=== PATIENT | female | born 1950 | race Caucasian/White ===

== ENCOUNTER 2021-10-02 08:54 | Outpatient (CLI) | payer MEDICARE, BC | END 2021-10-02 08:55 | disposition home or self-care (01) | LOC: CSHMAMMO 08:54 | PROVIDERS: ATTEND Internal Medicine | DX: Z12.31 Encounter for screening mammogram for malignant neoplasm of breast (principal) | CPT/HCPCS: 77063; 77067 ==

== ENCOUNTER 2021-11-18 12:17 | Outpatient (CLI) | payer MEDICARE | END 2021-11-18 12:18 | disposition home or self-care (01) | LOC: CSHRAD 12:17 | PROVIDERS: ATTEND Internal Medicine | DX: R04.2 Hemoptysis (principal) | CPT/HCPCS: 71046 ==

== ENCOUNTER 2022-03-19 11:59 | Inpatient (IN) | payer BC, MEDICARE, OTHER ==
[2022-03-19 12:29] LABS: #Basophils 0.1 10x3/uL (0.0-0.2); #Eosinphils 0.3 10x3/uL (0.0-0.5); #Monocytes 0.8 10x3/uL (0.0-1.1); #Neutrophils 4.1 10x3/uL (1.5-8.4); %Basophils 0.9 % (0.0-2.0); %Eosinophils 3.8 % (0.0-6.0); %Lymphocytes 25.4 % (18.0-47.0); %Monocytes 10.8 % (0.0-10.0); %Neutrophils 58.8 % (40.0-75.0); Hemoglobin 13.3 g/dL (12.0-15.5); Mean Corpuscular HGB CONC 34.8 g/dL (32.0-36.0); Mean Corpuscular Hemoglobin 32.5 pg (27.0-33.0); Mean Corpuscular Volume 93.4 fl (81.6-98.3); Mean Platelet Volume 8.2 fl (7.4-10.4); Platelet Count 165 10x3/uL (150-450); RBC Distribution Width 12.5 % (11.5-14.5); Red Blood Cell (RBC) Count 4.09 10x6/uL (3.90-5.03); White Blood Cell (WBC) Count 6.9 10x3/uL (3.5-10.5)
[2022-03-19 12:49] LABS: ALT (SGPT) 17 U/L (8-55); AST (SGOT) 20 U/L (5-34); Albumin 3.9 g/dL (3.4-4.8); Alkaline Phosphatase 68 U/L (40-110); Anion Gap 12 mmol/L (10-20); BUN (Urea Nitrogen) 21 mg/dL (9.8-20.1); Bilirubin, Total 0.3 mg/dL (0.2-1.2); Calc. Creatinine Clearance 0 mL/min (70-130); Calcium 9.4 mg/dL (7.8-10.44); Carbon Dioxide 24 mmol/L (23-31); Chloride 107 mmol/L (98-107); Globulin 2.3 g/dL (2.4-3.5); Glucose 85 mg/dL (83-110); Lipase 73 U/L (8-78); Potassium 4.8 mmol/L (3.5-5.1); Protein, Total 6.2 g/dL (5.8-8.1); Sodium 138 mmol/L (136-145)
[2022-03-19] MEDS ORDERED: Aspirin Chewable 81 MG TAB ONE (14:01)
[2022-03-19] MEDS ORDERED: Furosemide 20 MG/2 ML VIAL SLOW IVP SCH (16:00)
[2022-03-19 17:14] VITALS: BMI 71.2
[2022-03-19] MEDS ORDERED: traMADol HCl 50 MG TAB PO PRN (18:16)
[2022-03-19 19:25] LABS: Free T4 (Free Thyroxine) 1.02 ng/dL (0.70-1.48); Thyroid Stimulating Hormone 0.264 uIU/mL (0.35-4.94)
[2022-03-19] MEDS: Donepezil HCl 5 MG TAB PO SCH (20:51)
[2022-03-19] MEDS: Metoprolol Tartrate 25 MG TAB PO SCH (20:52)
[2022-03-19] MEDS: Nitroglycerin 2% Ointment 1 INCH/1 GM Packet TOP SCH (20:58)
[2022-03-20 04:59] LABS: #Eosinphils 0.3 10x3/uL (0.0-0.5); #Monocytes 0.7 10x3/uL (0.0-1.1); #Neutrophils 3.3 10x3/uL (1.5-8.4); %Basophils 0.6 % (0.0-2.0); %Eosinophils 4.2 % (0.0-6.0); %Lymphocytes 34.1 % (18.0-47.0); %Monocytes 10.7 % (0.0-10.0); %Neutrophils 50.1 % (40.0-75.0); Hemoglobin 13.4 g/dL (12.0-15.5); Mean Corpuscular HGB CONC 34.8 g/dL (32.0-36.0); Mean Corpuscular Volume 91.9 fl (81.6-98.3); Mean Platelet Volume 8.3 fl (7.4-10.4); Platelet Count 158 10x3/uL (150-450); RBC Distribution Width 12.4 % (11.5-14.5); Red Blood Cell (RBC) Count 4.19 10x6/uL (3.90-5.03); White Blood Cell (WBC) Count 6.6 10x3/uL (3.5-10.5)
[2022-03-20 05:04] LABS: ALT (SGPT) 14 U/L (8-55); AST (SGOT) 17 U/L (5-34); Albumin 3.6 g/dL (3.4-4.8); Alkaline Phosphatase 70 U/L (40-110); Anion Gap 14 mmol/L (10-20); BUN (Urea Nitrogen) 25 mg/dL (9.8-20.1); Bilirubin, Total 0.3 mg/dL (0.2-1.2); Calc. Creatinine Clearance 50 mL/min (70-130); Calcium 9.5 mg/dL (7.8-10.44); Carbon Dioxide 26 mmol/L (23-31); Cardiac Risk 3.2 (Less than 4.5); Chloride 106 mmol/L (98-107); Cholesterol 168 mg/dl (< 200 Desired); Globulin 2.6 g/dL (2.4-3.5); Glucose 86 mg/dL (83-110); HDL Cholesterol 52 mg/dL (>60 Neg Risk); LDL Cholesterol, Calculated 77 mg/dL; Potassium 4.1 mmol/L (3.5-5.1); Protein, Total 6.2 g/dL (5.8-8.1); Sodium 142 mmol/L (136-145); Triglycerides 195 mg/dL (Less than 150)
[2022-03-20] MEDS: Nitroglycerin 2% Ointment 1 INCH/1 GM Packet TOP SCH ×3 (05:05→21:45)
[2022-03-20] MEDS: Levothyroxine Sodium 75 MCG TAB PO SCH (05:05)
[2022-03-20] MEDS: Metoprolol Tartrate 25 MG TAB PO SCH ×2 (08:19→21:22)
[2022-03-20] MEDS: Escitalopram Oxalate 10 mg Tablet PO SCH (08:20)
[2022-03-20] MEDS: Amitriptyline HCl 25 MG TAB PO SCH (08:20)
[2022-03-20] MEDS: Ezetimibe 10 MG TAB PO SCH (08:20)
[2022-03-20] MEDS: Bupropion 150 MG SR TAB PO SCH (08:20)
[2022-03-20] MEDS: Aspirin 81 mg Enteric Coated Tablet PO SCH (08:22)
[2022-03-20] MEDS ORDERED: Aspirin Chewable 81 MG TAB PO SCH (09:00)
[2022-03-20] MEDS ORDERED: Enoxaparin Sodium 30 MG/0.3 ML SYRINGE SC SCH (09:00)
[2022-03-20] MEDS ORDERED: Communication Order-Pharmacy FS SCH (18:00)
[2022-03-20] MEDS: Donepezil HCl 5 MG TAB PO SCH (21:20)
[2022-03-21] MEDS: Levothyroxine Sodium 75 MCG TAB PO SCH (07:13)
[2022-03-21] MEDS: Nitroglycerin 2% Ointment 1 INCH/1 GM Packet TOP SCH ×3 (07:30→22:30)
[2022-03-21] MEDS: Aspirin 81 mg Enteric Coated Tablet PO SCH (07:55)
[2022-03-21] MEDS: Amitriptyline HCl 25 MG TAB PO SCH (07:55)
[2022-03-21] MEDS: Ezetimibe 10 MG TAB PO SCH (07:55)
[2022-03-21] MEDS: Escitalopram Oxalate 10 mg Tablet PO SCH (07:55)
[2022-03-21] MEDS: Metoprolol Tartrate 25 MG TAB PO SCH ×2 (07:55→20:17)
[2022-03-21] MEDS: Bupropion 150 MG SR TAB PO SCH (07:55)
[2022-03-21] MEDS ORDERED: Sodium Chloride 0.9% 1,000 ML IV SCH (08:00)
[2022-03-21] MEDS ORDERED: Iopamidol 300 61% 100 ML VIAL FS ONE (10:58)
[2022-03-21] MEDS: Acetaminophen 325 MG TAB PO PRN (12:15)
[2022-03-21] MEDS ORDERED: Lidocaine 1% 20 ML MDV ONE (14:18)
[2022-03-21] MEDS ORDERED: Heparin 10,000 UNITS/ 10 ML VIAL ONE (14:19)
[2022-03-21] MEDS ORDERED: Adenosine 6 MG/2 ML VIAL ONE (14:19)
[2022-03-21] MEDS ORDERED: Nitroglycerin 50 MG/250 ML BOT 0 ML ONE (14:19)
[2022-03-21] MEDS ORDERED: Sodium Chloride 0.9% 1,000 ML ONE (14:20)
[2022-03-21] MEDS ORDERED: Fentanyl 100 MCG/2 ML VIAL ONE (15:02)
[2022-03-21] MEDS ORDERED: Midazolam HCl 2 mg/2 ml Vial ONE (15:02)
[2022-03-21] MEDS ORDERED: Sodium Chloride 0.9% 200 ML IV PRN (15:41)
[2022-03-21] MEDS: Donepezil HCl 5 MG TAB PO SCH (20:17)
[2022-03-22] MEDS: Nitroglycerin 2% Ointment 1 INCH/1 GM Packet TOP SCH ×2 (06:10→06:51)
[2022-03-22] MEDS: Levothyroxine Sodium 75 MCG TAB PO SCH (06:20)
[2022-03-22] MEDS: Bupropion 150 MG SR TAB PO SCH (08:07)
[2022-03-22] MEDS: Aspirin 81 mg Enteric Coated Tablet PO SCH (08:07)
[2022-03-22] MEDS: Ezetimibe 10 MG TAB PO SCH (08:07)
[2022-03-22] MEDS: Amitriptyline HCl 25 MG TAB PO SCH ×2 (08:07→13:27)
[2022-03-22] MEDS: Metoprolol Tartrate 25 MG TAB PO SCH (08:07)
[2022-03-22] MEDS: Acetaminophen 325 MG TAB PO PRN (08:07)
[2022-03-22] MEDS: Escitalopram Oxalate 10 mg Tablet PO SCH (08:09)
[2022-03-22 16:22] VITALS: BP 126/58; TEMP 97.1
[2022-03-22] MEDS ORDERED: Amitriptyline HCl 25 MG TAB PO SCH (21:00)
== END 2022-03-22 16:30 | disposition home or self-care (01) | DRG 287 ==
LOC: CSHERS 11:59 → CSHTELE 14:58 → OBSVTOIN 03-22 11:31
PROVIDERS: ADMIT Hospitalist; ATTEND Family Medicine
PROC: 4A023N7 Measurement of Cardiac Sampling and Pressure, Left Heart, Percutaneous Approach (ICD-10-PCS; principal; 2022-03-22)
PROC: B215YZZ Fluoroscopy of Left Heart using Other Contrast (ICD-10-PCS; 2022-03-22)
DX: I25.110 Atherosclerotic heart disease of native coronary artery with unstable angina pectoris (principal); R07.89 Other chest pain; I10 Essential (primary) hypertension; E03.9 Hypothyroidism, unspecified; F32.A Depression, unspecified; K21.9 Gastro-esophageal reflux disease without esophagitis; F41.9 Anxiety disorder, unspecified; G47.00 Insomnia, unspecified; I73.9 Peripheral vascular disease, unspecified; I34.0 Nonrheumatic mitral (valve) insufficiency; M71.9 Bursopathy, unspecified; I49.5 Sick sinus syndrome; E78.2 Mixed hyperlipidemia; E78.00 Pure hypercholesterolemia, unspecified; Z20.822 Contact with and (suspected) exposure to COVID-19; Z96.653 Presence of artificial knee joint, bilateral; Z95.0 Presence of cardiac pacemaker; Z88.1 Allergy status to other antibiotic agents; Z95.1 Presence of aortocoronary bypass graft; Z88.5 Allergy status to narcotic agent; Z88.0 Allergy status to penicillin; Z88.2 Allergy status to sulfonamides; Z88.7 Allergy status to serum and vaccine; Z88.8 Allergy status to other drugs, medicaments and biological substances; Z91.09 Other allergy status, other than to drugs and biological substances; Z79.82 Long term (current) use of aspirin; Z79.899 Other long term (current) drug therapy; Z79.890 Hormone replacement therapy; Z79.01 Long term (current) use of anticoagulants; Z95.5 Presence of coronary angioplasty implant and graft; Z90.49 Acquired absence of other specified parts of digestive tract; I25.2 Old myocardial infarction; Z90.710 Acquired absence of both cervix and uterus; Z83.3 Family history of diabetes mellitus; Z82.49 Family history of ischemic heart disease and other diseases of the circulatory system; Z84.1 Family history of disorders of kidney and ureter
CPT/HCPCS: 36415; 71045; 80053; 80061; 83690; 83880; 84439; 84443; 84481; 84484; 85025; 93005; 93306; 93459; 94760; 96372; 96374; 99152; C1769; G0378; J0153; J1644; J1650; J1940; J2250; J3010; J7050; Q9967; U0003; U0005

== ENCOUNTER 2022-09-13 12:02 | Inpatient (IN) | payer MEDICARE, OTHER ==
[~2022-09-13 12:02] MED LIST: Iopamidol 300 61% 100 ML VIAL FS ONE
[2022-09-13 13:07] LABS: #Eosinphils 0.1 10x3/uL (0.0-0.5); #Neutrophils 7.8 10x3/uL (1.5-8.4); %Basophils 0.3 % (0.0-2.0); %Eosinophils 0.9 % (0.0-6.0); %Lymphocytes 15.4 % (18.0-47.0); %Monocytes 9.3 % (0.0-10.0); %Neutrophils 73.7 % (40.0-75.0); Hemoglobin 14.1 g/dL (12.0-15.5); Mean Corpuscular HGB CONC 35.3 g/dL (32.0-36.0); Mean Corpuscular Hemoglobin 33.3 pg (27.0-33.0); Mean Corpuscular Volume 94.3 fl (81.6-98.3); Mean Platelet Volume 8.5 fl (7.4-10.4); Platelet Count 207 10x3/uL (150-450); RBC Distribution Width 12.1 % (11.5-14.5); Red Blood Cell (RBC) Count 4.23 10x6/uL (3.90-5.03); White Blood Cell (WBC) Count 10.6 10x3/uL (3.5-10.5)
[2022-09-13] MEDS ORDERED: Aspirin Chewable 81 MG TAB ONE (13:19)
[2022-09-13] MEDS ORDERED: Ondansetron PF 4 MG/2 ML Vial ONE (13:20)
[2022-09-13 13:33] LABS: ALT (SGPT) 13 U/L (8-55); AST (SGOT) 16 U/L (5-34); Albumin 4.1 g/dL (3.4-4.8); Alkaline Phosphatase 55 U/L (40-110); Anion Gap 14 mmol/L (10-20); BUN (Urea Nitrogen) 22 mg/dL (9.8-20.1); Bilirubin, Total 0.7 mg/dL (0.2-1.2); Calc. Creatinine Clearance 0 mL/min (70-130); Calcium 9.9 mg/dL (7.8-10.44); Carbon Dioxide 23 mmol/L (23-31); Chloride 105 mmol/L (98-107); Estimated GFR 37; Globulin 2.4 g/dL (2.4-3.5); Glucose 91 mg/dL (83-110); Lipase 28 U/L (8-78); Protein, Total 6.5 g/dL (5.8-8.1); Sodium 138 mmol/L (136-145)
[2022-09-13 17:17] LABS: SARS-CoV-2 NAA Rapid Test Not Detected (NotDetected)
[2022-09-13] MEDS ORDERED: Nitroglycerin 0.4 MG TAB (25 Tab Bottle) SL PRN (18:01)
[2022-09-13] MEDS ORDERED: traMADol HCl 50 MG TAB PO PRN (18:04)
[2022-09-13] MEDS ORDERED: Acetaminophen 325 MG TAB PO PRN (18:09)
[2022-09-13] MEDS ORDERED: Ondansetron ODT 4 MG TAB PO PRN (18:09)
[2022-09-13] MEDS ORDERED: Ondansetron PF 4 MG/2 ML Vial IVP PRN (18:09)
[2022-09-13 19:03] VITALS: BMI 35.0
[2022-09-13 19:50] LABS: Bilirubin Neg (Negative); Blood, Urine Negative (Negative); Clarity Slightly Cloudy (Clear); Glucose, Urine (Dipstick) Normal (Negative); Ketone, Urine 5 mg/dL (Negative); Leukocyte 25 (Negative); Nitrite Negative (Negative); Protein, Urine (Dipstick) Negative (Neg-Trace); Specific Gravity, Urine 1.015 (1.005-1.030); Urobilinogen Normal mg/dL (Less than 2)
[2022-09-13 19:59] LABS: Magnesium 2.1 mg/dL (1.6-2.6); Phosphorus 2.5 mg/dL (2.3-4.7)
[2022-09-13 20:00] LABS: Bacteria/HPF 2+ HPF (None Seen); Calcium Oxalate Crystals Rare HPF (None Seen); Mucous/LPF None Seen LPF (<2+); RBC/HPF None Seen HPF (0-3); Renal Epithelial 0-3 HPF (None Seen); Squamous Epithelial 0-3 HPF (0-3)
[2022-09-13] MEDS: Sodium Chloride 0.9% 1,000 ML IV SCH (20:27)
[2022-09-13] MEDS: Donepezil HCl 5 MG TAB PO SCH (20:31)
[2022-09-13] MEDS: Enoxaparin Sodium 40 MG/0.4 ML SYRINGE SC SCH (20:32)
[2022-09-13] MEDS ORDERED: Famotidine 20 MG TAB PO SCH (21:00)
[2022-09-13 21:50] LABS: Troponin I Less than 0.010 ng/mL (< 0.028)
[2022-09-13] MEDS: Metoprolol Tartrate 25 MG TAB PO SCH (22:12)
[2022-09-14 04:40] LABS: #Eosinphils 0.2 10x3/uL (0.0-0.5); #Monocytes 0.8 10x3/uL (0.0-1.1); #Neutrophils 5.3 10x3/uL (1.5-8.4); %Basophils 0.4 % (0.0-2.0); %Eosinophils 1.9 % (0.0-6.0); %Monocytes 10.1 % (0.0-10.0); %Neutrophils 63.4 % (40.0-75.0); Hemoglobin 13.3 g/dL (12.0-15.5); Mean Corpuscular HGB CONC 35.3 g/dL (32.0-36.0); Mean Corpuscular Hemoglobin 33.6 pg (27.0-33.0); Mean Corpuscular Volume 95.2 fl (81.6-98.3); Mean Platelet Volume 8.7 fl (7.4-10.4); Platelet Count 176 10x3/uL (150-450); RBC Distribution Width 12.1 % (11.5-14.5); Red Blood Cell (RBC) Count 3.96 10x6/uL (3.90-5.03); White Blood Cell (WBC) Count 8.3 10x3/uL (3.5-10.5)
[2022-09-14 04:47] LABS: Anion Gap 14 mmol/L (10-20); BUN (Urea Nitrogen) 15 mg/dL (9.8-20.1); Calc. Creatinine Clearance 56 mL/min (70-130); Calcium 9.4 mg/dL (7.8-10.44); Carbon Dioxide 18 mmol/L (23-31); Chloride 114 mmol/L (98-107); Estimated GFR 52; Glucose 73 mg/dL (83-110); Potassium 3.6 mmol/L (3.5-5.1); Sodium 142 mmol/L (136-145)
[2022-09-14] MEDS: Sodium Chloride 0.9% 1,000 ML IV SCH ×2 (06:26→17:46)
[2022-09-14] MEDS ORDERED: Levothyroxine Sodium 75 MCG TAB PO SCH (07:30)
[2022-09-14] MEDS: Escitalopram Oxalate 10 mg Tablet PO SCH (10:15)
[2022-09-14] MEDS: Metoprolol Tartrate 25 MG TAB PO SCH ×2 (10:15→21:18)
[2022-09-14] MEDS: Ezetimibe 10 MG TAB PO SCH (10:16)
[2022-09-14] MEDS: Bupropion 150 MG SR TAB PO SCH (10:16)
[2022-09-14] MEDS: Aspirin 81 mg Enteric Coated Tablet PO SCH (10:17)
[2022-09-14] MEDS: Amitriptyline HCl 25 MG TAB PO SCH (10:17)
[2022-09-14 10:51] LABS: Free T4 (Free Thyroxine) 1.53 ng/dL (0.70-1.48)
[2022-09-14 11:21] LABS: Troponin I Less than 0.010 ng/mL (< 0.028)
[2022-09-14] MEDS ORDERED: Famotidine 20 MG TAB PO SCH (21:00)
[2022-09-14] MEDS: Enoxaparin Sodium 40 MG/0.4 ML SYRINGE SC SCH (21:18)
[2022-09-14] MEDS: Donepezil HCl 5 MG TAB PO SCH (21:18)
[2022-09-15 04:08] LABS: #Eosinphils 0.2 10x3/uL (0.0-0.5); #Monocytes 0.7 10x3/uL (0.0-1.1); #Neutrophils 3.7 10x3/uL (1.5-8.4); %Basophils 0.5 % (0.0-2.0); %Eosinophils 3.1 % (0.0-6.0); %Lymphocytes 24.8 % (18.0-47.0); %Monocytes 10.7 % (0.0-10.0); %Neutrophils 60.6 % (40.0-75.0); Hemoglobin 12.4 g/dL (12.0-15.5); Mean Corpuscular HGB CONC 34.6 g/dL (32.0-36.0); Mean Corpuscular Hemoglobin 33.3 pg (27.0-33.0); Mean Corpuscular Volume 96.2 fl (81.6-98.3); Mean Platelet Volume 8.8 fl (7.4-10.4); Platelet Count 161 10x3/uL (150-450); RBC Distribution Width 12.1 % (11.5-14.5); Red Blood Cell (RBC) Count 3.72 10x6/uL (3.90-5.03); White Blood Cell (WBC) Count 6.1 10x3/uL (3.5-10.5)
[2022-09-15 04:22] LABS: Anion Gap 11 mmol/L (10-20); BUN (Urea Nitrogen) 14 mg/dL (9.8-20.1); Calc. Creatinine Clearance 53 mL/min (70-130); Carbon Dioxide 21 mmol/L (23-31); Chloride 113 mmol/L (98-107); Potassium 3.9 mmol/L (3.5-5.1); Sodium 141 mmol/L (136-145)
[2022-09-15 04:23] LABS: ALT (SGPT) 11 U/L (8-55); AST (SGOT) 14 U/L (5-34); Albumin 3.4 g/dL (3.4-4.8); Alkaline Phosphatase 46 U/L (40-110); Bilirubin, Total 0.5 mg/dL (0.2-1.2); Calcium 9.1 mg/dL (7.8-10.44); Estimated GFR 48; Globulin 2.2 g/dL (2.4-3.5); Glucose 68 mg/dL (83-110); Protein, Total 5.6 g/dL (5.8-8.1)
[2022-09-15] MEDS ORDERED: Levothyroxine Sodium 50 MCG TAB PO SCH (06:00)
[2022-09-15 08:05] VITALS: TEMP 98.1
[2022-09-15] MEDS: Bupropion 150 MG SR TAB PO SCH (09:09)
[2022-09-15] MEDS: Aspirin 81 mg Enteric Coated Tablet PO SCH (09:09)
[2022-09-15] MEDS: Escitalopram Oxalate 10 mg Tablet PO SCH (09:09)
[2022-09-15] MEDS: Ezetimibe 10 MG TAB PO SCH (09:09)
[2022-09-15] MEDS: Amitriptyline HCl 25 MG TAB PO SCH (09:09)
[2022-09-15] MEDS: Metoprolol Tartrate 25 MG TAB PO SCH (09:10)
[2022-09-15 13:35] VITALS: BP 136/68
== END 2022-09-15 15:55 | disposition home or self-care (01) | DRG 641 ==
LOC: CSHERS 12:02 → CSHTELE 17:10 → OBSVTOIN 09-15 12:48
PROVIDERS: ADMIT Internal Medicine; ATTEND Internal Medicine
DX: E86.0 Dehydration (principal); N17.9 Acute kidney failure, unspecified; I10 Essential (primary) hypertension; I25.10 Atherosclerotic heart disease of native coronary artery without angina pectoris; E03.9 Hypothyroidism, unspecified; K21.9 Gastro-esophageal reflux disease without esophagitis; R11.2 Nausea with vomiting, unspecified; F03.90 Unspecified dementia, unspecified severity, without behavioral disturbance, psychotic disturbance, mood disturbance, and anxiety; E66.01 Morbid (severe) obesity due to excess calories; F41.9 Anxiety disorder, unspecified; F32.A Depression, unspecified; Z96.653 Presence of artificial knee joint, bilateral; R53.81 Other malaise; E78.2 Mixed hyperlipidemia; I73.9 Peripheral vascular disease, unspecified; R53.1 Weakness; R13.10 Dysphagia, unspecified; Z79.899 Other long term (current) drug therapy; I25.2 Old myocardial infarction; Z95.1 Presence of aortocoronary bypass graft; Z95.5 Presence of coronary angioplasty implant and graft; Z98.890 Other specified postprocedural states; Z88.8 Allergy status to other drugs, medicaments and biological substances; Z88.5 Allergy status to narcotic agent; Z88.6 Allergy status to analgesic agent; Z88.0 Allergy status to penicillin; Z88.2 Allergy status to sulfonamides; Z90.49 Acquired absence of other specified parts of digestive tract; Z91.048 Other nonmedicinal substance allergy status; Z90.710 Acquired absence of both cervix and uterus; Z82.49 Family history of ischemic heart disease and other diseases of the circulatory system; Z83.3 Family history of diabetes mellitus; Z79.82 Long term (current) use of aspirin; Z95.0 Presence of cardiac pacemaker; Z86.16 Personal history of COVID-19; Z79.890 Hormone replacement therapy; Z68.35 Body mass index [BMI] 35.0-35.9, adult; Z20.822 Contact with and (suspected) exposure to COVID-19
CPT/HCPCS: 36415; 36416; 70450; 71045; 74177; 80048; 80053; 81003; 81015; 83605; 83690; 83735; 83880; 84100; 84439; 84443; 84481; 84484; 85025; 93005; 94760; 96361; 96372; 96374; G0378; J1650; J2405; J7050; Q9967

== ENCOUNTER 2023-01-12 05:09 | Emergency (ER) | payer MEDICARE, OTHER ==
[2023-01-12 05:45] LABS: #Basophils 0.1 10x3/uL (0.0-0.2); #Eosinphils 0.2 10x3/uL (0.0-0.5); #Monocytes 0.7 10x3/uL (0.0-1.1); #Neutrophils 6.2 10x3/uL (1.5-8.4); %Basophils 0.6 % (0.0-2.0); %Eosinophils 2.1 % (0.0-6.0); %Lymphocytes 18.9 % (18.0-47.0); %Monocytes 7.9 % (0.0-10.0); %Neutrophils 69.9 % (40.0-75.0); Mean Corpuscular HGB CONC 33.6 g/dL (32.0-36.0); Mean Corpuscular Hemoglobin 32.8 pg (27.0-33.0); Mean Corpuscular Volume 97.7 fl (81.6-98.3); Mean Platelet Volume 8.9 fl (7.4-10.4); Platelet Count 179 10x3/uL (150-450); RBC Distribution Width 12.1 % (11.5-14.5); Red Blood Cell (RBC) Count 4.27 10x6/uL (3.90-5.03); White Blood Cell (WBC) Count 8.9 10x3/uL (3.5-10.5)
[2023-01-12 05:59] LABS: ALT (SGPT) 16 U/L (8-55); AST (SGOT) 24 U/L (5-34); Albumin 4.2 g/dL (3.4-4.8); Alkaline Phosphatase 65 U/L (40-110); Anion Gap 16 mmol/L (10-20); BUN (Urea Nitrogen) 22 mg/dL (9.8-20.1); Bilirubin, Total 0.4 mg/dL (0.2-1.2); Calc. Creatinine Clearance 0 mL/min (70-130); Calcium 9.8 mg/dL (7.8-10.44); Carbon Dioxide 21 mmol/L (23-31); Chloride 109 mmol/L (98-107); Estimated GFR 43; Globulin 2.4 g/dL (2.4-3.5); Glucose 91 mg/dL (83-110); Magnesium 2.2 mg/dL (1.6-2.6); Potassium 4.7 mmol/L (3.5-5.1); Protein, Total 6.6 g/dL (5.8-8.1); Sodium 141 mmol/L (136-145)
== END 2023-01-12 08:30 | disposition home or self-care (01) ==
LOC: CSHERS 05:09
DX: S01.01XA Laceration without foreign body of scalp, initial encounter (principal); S70.01XA Contusion of right hip, initial encounter; S70.02XA Contusion of left hip, initial encounter; S09.90XA Unspecified injury of head, initial encounter; I10 Essential (primary) hypertension; I25.10 Atherosclerotic heart disease of native coronary artery without angina pectoris; E78.5 Hyperlipidemia, unspecified; E03.9 Hypothyroidism, unspecified; Z79.82 Long term (current) use of aspirin; Z79.899 Other long term (current) drug therapy; W19.XXXA Unspecified fall, initial encounter
CPT/HCPCS: 12002; 70450; 71045; 72125; 72192; 80053; 83735; 84484; 85025; 93005

== ENCOUNTER 2023-01-18 13:07 | Emergency (ER) | payer OTHER ==
[2023-01-18 13:56] LABS: #Eosinphils 0.2 10x3/uL (0.0-0.5); #Monocytes 0.6 10x3/uL (0.0-1.1); #Neutrophils 5.1 10x3/uL (1.5-8.4); %Basophils 0.5 % (0.0-2.0); %Eosinophils 2.4 % (0.0-6.0); %Lymphocytes 19.5 % (18.0-47.0); %Monocytes 8.2 % (0.0-10.0); %Neutrophils 69.3 % (40.0-75.0); Hemoglobin 14.2 g/dL (12.0-15.5); Mean Corpuscular HGB CONC 34.4 g/dL (32.0-36.0); Mean Corpuscular Hemoglobin 33.6 pg (27.0-33.0); Mean Corpuscular Volume 97.9 fl (81.6-98.3); Mean Platelet Volume 8.7 fl (7.4-10.4); Platelet Count 193 10x3/uL (150-450); RBC Distribution Width 12.2 % (11.5-14.5); Red Blood Cell (RBC) Count 4.22 10x6/uL (3.90-5.03); White Blood Cell (WBC) Count 7.4 10x3/uL (3.5-10.5)
[2023-01-18] MEDS ORDERED: Ketorolac Tromethamine 30 MG/ML VIAL ONE (13:57)
[2023-01-18 14:09] LABS: ALT (SGPT) 17 U/L (8-55); AST (SGOT) 20 U/L (5-34); Albumin 4.3 g/dL (3.4-4.8); Alkaline Phosphatase 68 U/L (40-110); Anion Gap 16 mmol/L (10-20); BUN (Urea Nitrogen) 21 mg/dL (9.8-20.1); Bilirubin, Total 0.4 mg/dL (0.2-1.2); Calc. Creatinine Clearance 0 mL/min (70-130); Calcium 10.1 mg/dL (7.8-10.44); Carbon Dioxide 23 mmol/L (23-31); Chloride 108 mmol/L (98-107); Estimated GFR 51; Globulin 2.6 g/dL (2.4-3.5); Glucose 83 mg/dL (83-110); Lipase 63 U/L (8-78); Potassium 4.5 mmol/L (3.5-5.1); Protein, Total 6.9 g/dL (5.8-8.1); Sodium 142 mmol/L (136-145)
[2023-01-18 15:09] LABS: Bilirubin Neg (Negative); Blood, Urine Negative (Negative); Clarity Clear (Clear); Glucose, Urine (Dipstick) Normal (Negative); Ketone, Urine Negative (Negative); Leukocyte Negative (Negative); Nitrite Negative (Negative); Protein, Urine (Dipstick) Negative (Neg-Trace); Urobilinogen Normal mg/dL (Less than 2)
== END 2023-01-18 16:15 | disposition home or self-care (01) ==
LOC: CSHERS 13:07
DX: K59.00 Constipation, unspecified (principal); I10 Essential (primary) hypertension; I25.10 Atherosclerotic heart disease of native coronary artery without angina pectoris; E78.5 Hyperlipidemia, unspecified; E03.9 Hypothyroidism, unspecified
CPT/HCPCS: 74177; 80053; 81003; 83690; 84484; 85025; 96374; J1885; Q9967

== ENCOUNTER 2023-01-21 05:38 | Emergency (ER) | payer OTHER ==
[2023-01-21 07:15] LABS: #Eosinphils 0.1 10x3/uL (0.0-0.5); #Neutrophils 9.6 10x3/uL (1.5-8.4); %Basophils 0.2 % (0.0-2.0); %Eosinophils 0.5 % (0.0-6.0); %Lymphocytes 9.7 % (18.0-47.0); %Monocytes 8.5 % (0.0-10.0); %Neutrophils 80.8 % (40.0-75.0); Hemoglobin 10.4 g/dL (12.0-15.5); Mean Corpuscular HGB CONC 33.9 g/dL (32.0-36.0); Mean Corpuscular Hemoglobin 33.2 pg (27.0-33.0); Mean Corpuscular Volume 98.1 fl (81.6-98.3); Mean Platelet Volume 8.8 fl (7.4-10.4); Platelet Count 134 10x3/uL (150-450); RBC Distribution Width 12.4 % (11.5-14.5); Red Blood Cell (RBC) Count 3.13 10x6/uL (3.90-5.03); White Blood Cell (WBC) Count 11.9 10x3/uL (3.5-10.5)
[2023-01-21 07:33] LABS: ALT (SGPT) 12 U/L (8-55); AST (SGOT) 15 U/L (5-34); Albumin 3.1 g/dL (3.4-4.8); Alkaline Phosphatase 51 U/L (40-110); Anion Gap 13 mmol/L (10-20); BUN (Urea Nitrogen) 20 mg/dL (9.8-20.1); Bilirubin, Total 0.4 mg/dL (0.2-1.2); Calc. Creatinine Clearance 0 mL/min (70-130); Calcium 8.4 mg/dL (7.8-10.44); Carbon Dioxide 18 mmol/L (23-31); Chloride 109 mmol/L (98-107); Estimated GFR 55; Globulin 2.2 g/dL (2.4-3.5); Glucose 103 mg/dL (83-110); Lipase 18 U/L (8-78); Potassium 3.9 mmol/L (3.5-5.1); Protein, Total 5.3 g/dL (5.8-8.1); Sodium 136 mmol/L (136-145)
[2023-01-21 09:22] LABS: Bilirubin Neg (Negative); Blood, Urine Negative (Negative); Clarity Clear (Clear); Glucose, Urine (Dipstick) Normal (Negative); Ketone, Urine 5 mg/dL (Negative); Leukocyte 25 (Negative); Nitrite Negative (Negative); Protein, Urine (Dipstick) 15 mg/dl (Neg-Trace); Specific Gravity, Urine 1.015 (1.005-1.030); Urobilinogen Normal mg/dL (Less than 2)
[2023-01-21 09:41] LABS: RBC/HPF 0-3 HPF (0-3)
[2023-01-21 09:42] LABS: Bacteria/HPF 2+ HPF (None Seen)
[2023-01-21] MEDS ORDERED: Iopamidol 300 61% 100 ML VIAL FS ONE (14:18)
== END 2023-01-21 08:35 | disposition home or self-care (01) ==
LOC: CSHERS 05:38
DX: M79.81 Nontraumatic hematoma of soft tissue (principal); K52.9 Noninfective gastroenteritis and colitis, unspecified; E03.9 Hypothyroidism, unspecified; I10 Essential (primary) hypertension; I25.10 Atherosclerotic heart disease of native coronary artery without angina pectoris; E78.5 Hyperlipidemia, unspecified; Z79.899 Other long term (current) drug therapy; Z79.82 Long term (current) use of aspirin
CPT/HCPCS: 36415; 74177; 80053; 81003; 81015; 83605; 83690; 84484; 85025; Q9967

== ENCOUNTER 2023-08-08 01:33 | Emergency (ER) | payer BC, MEDICARE, OTHER | END 2023-08-08 04:29 | disposition home or self-care (01) | LOC: CSHERS 01:33 | DX: S00.03XA Contusion of scalp, initial encounter (principal); I10 Essential (primary) hypertension; I25.10 Atherosclerotic heart disease of native coronary artery without angina pectoris; E03.9 Hypothyroidism, unspecified; W06.XXXA Fall from bed, initial encounter; Z79.82 Long term (current) use of aspirin; Z79.899 Other long term (current) drug therapy | CPT/HCPCS: 70450 ==